=== PATIENT | male | born 1990 | race Hispanic/Latino ===

== ENCOUNTER 2021-02-25 04:46 | Emergency (ER) | payer OTHER ==
--- OUTSIDE RECORDS SUMMARY | 2021-02-25 04:48 | XMS REPORT | Continuity of Care Document ---
:1990 Author Organization [facility] t Address [address] [place] [address] Care Team Providers Name Role Phone Unavailable Unavailable Unavailable Problems This patient has no known problems. Allergies, Adverse Reactions, Alerts This patient has no known allergies or adverse reactions. Medications Ordered Filled Start Stop Current Ordering Indication Dosage Frequency Signature Comments Components Source Medication Medication Date Date Medication? Clinician (SIG) Name Name Lisinopril Lisinopril Yes Justin [address] [facility] Pantoprazol Pantoprazol Yes Justin [address] [facility] Sodium e Sodium 4-08 [facility] Flonase Flonase Yes Justin [address] [facility] Procedures This patient has no known procedures. Encounters Start End Encounter Admission Attending Care Care Encounter Source Date/Time Date/Time Type Type Clinicians Facility Department ID 2021-01-25 2021-01-25 Outpatient [facility] [id number] [facility] 2020-08-16 2020-08-16 Outpatient [facility] [id number] [facility] 2020-07-25 2020-07-25 Outpatient [facility] [id number] [facility] 2020-05-26 2020-05-26 [facility] [id number] [facility] 2020-05-25 2020-05-25 [facility] [id number] [facility] 2020-05-25 2020-05-25 Out[facility] [id number] [facility] 2020-05-09 2020-05-09 Out[facility] [id number] 2019-03-01 2019-03-01 [facility] [id number] [facility] 08[facility] 08[facility]00 [facility] [employer] [facility] [employer] [facility] 2019-01-12 2019-01-12 [facility] [id number] 16[facility]00 16:00:00 [facility] [employer] [facility] [employer] [facility] 2018-10-26 2018-10-26 [facility] [id number] 16[facility]30:00 16:30:00 [facility] [employer] [facility] [employer] [facility] Results This patient has no known results.
--- NOTE | 2021-02-25 07:29 | ER ---
Nurse's Notes [facility] Name: Kyle Massey Age: 30 yrs Sex: Male : 1990 Arrival Date: 02/25/2021 Time: 04:51 Bed Waiting Private MD: Diagnosis: Presentation: 02/25 05:30 Chief complaint: Patient states: he was in bed this morning around 0100 when he noticed bb his legs and feet were hurting really bad and he is having arm pain. Coronavirus screen: At this time, the client does not indicate any symptoms associated with coronavirus-19. Ebola Screen: No symptoms or risks identified at this time. Initial Sepsis Screen: Does the patient meet any 2 criteria? No. Patient's initial sepsis screen is negative. Does the patient have a suspected source of infection? No. Patient's initial sepsis screen is negative. Risk Assessment: Do you want to hurt yourself or someone else? Patient reports no desire to harm self or others. Onset of symptoms was February 25, 2021. 05:30 Method Of Arrival: Ambulatory bb 05:30 Acuity: BEN 3 bb Triage Assessment: 05:32 General: Appears in no apparent distress. Behavior is calm, cooperative. Pain: bb Complains of pain in right arm, left arm, right leg and left leg Pain currently is 4 out of 10 on a pain scale. Neuro: Level of Consciousness is awake, alert, obeys commands, Oriented to person, place, time, situation. Cardiovascular: Capillary refill < 3 seconds Patient's skin is warm and dry. Respiratory: Respiratory effort is even, unlabored, Respiratory pattern is regular. GI: No signs and/or symptoms were reported involving the gastrointestinal system. Derm: Skin is pink, warm \T\ dry. Musculoskeletal: Circulation, motion, and sensation intact. Historical: - Allergies: 05:32 No Known Allergies; bb - Home Meds: 05:32 lisinopril Oral [Active]; pantoprazole oral [Active]; bb - PMHx: 05:32 Hypertensive disorder; GERD; bb - PSHx: 05:32 None; bb - Immunization history:: Adult Immunizations up to date, Client reports receiving the 1st dose of the Covid vaccine. - Social history:: Smoking status: Patient denies any tobacco usage or history of. Patient uses alcohol, occasionally. Patient/guardian denies using street drugs. Vital Signs: 05:30 BP 150 / 92; Pulse 91; Resp 16 S; Temp 98.1(O); Pulse Ox 99% on R/A; Weight 149.69 kg bb (R); Height 6 ft. 0 in. (182.88 cm) (R); Pain 4/10; 05:30 Body Mass Index 44.76 (149.69 kg, 182.88 cm) bb ED Course: 04:51 Patient arrived in ED. bp1 05:32 Triage completed. bb 05:32 Arm band placed on Patient placed in waiting room, Patient notified of wait time. bb Family accompanied patient. Administered Medications: No medications were administered Outcome: 07:27 Patient left the ED. iw Signatures: Kathrine Cancino RN RN bb Judy Lyons RN RN iw Tracey Mercado bp1 Corrections: (The following items were deleted from the chart) 05:33 05:32 Home Meds: None; bb bb
[2021-02-25 07:33] VITALS: BP 150/92; TEMP 98.1; O2SAT 99
== END 2021-02-25 07:27 | disposition left against medical advice (07) ==
LOC: ER 04:46
DX: Z53.21 Procedure and treatment not carried out due to patient leaving prior to being seen by health care provider (principal)
CPT/HCPCS: 99281